=== PATIENT | male | born 1970 | race Caucasian/White ===

== ENCOUNTER → 2016-07-04 | Outpatient (CLI) | payer OTHER ==
--- NOTE | 2016-07-04 17:10 | US ---
EXAMINATION TYPE: US scrotum with doppler. Grayscale and color Doppler Duplex imaging performed of t caridad scrotum. DATE OF EXAM: 07/04/2016 4:24 PM COMPARISON: No previous CLINICAL HISTORY: N50.8 L Testicular Swelling. Occasional left testicular pain EXAM MEASUREMENTS: TESTICLES: Right Testicle: 4.2 x 2.6 x 3.1 cm Left Testicle: 4.1 x 2.4 x 2.8 cm EPIDIDYMIS HEAD: Right Epididymis: 0.8 x 1.3 x 1.5 cm Left Epididymis: 1.0 x 1.2 x 1.5 cm Doppler performed to assess for testicular vascularity; good bilateral color flow and waveforms are s een. . Presence of hydroceles: right 2.7cm, left 3.1cm Presence of varicoceles: no TECHNOLOGIST IMPRESSION: No suspicious focal intratesticular mass is seen bilaterally. There are small scrotal fluid collectio n or hydroceles seen bilaterally. Comparison view show symmetric color flow to both testicles without abnormal skin thickening seen bilaterally. IMPRESSION: Symmetric blood flow to both testicles is noted. Fairly unremarkable study.
== END | disposition home or self-care (01) ==
LOC: RADUSWWP 16:03
PROVIDERS: ATTEND Surgery
DX: N50.89 Other specified disorders of the male genital organs (principal)
CPT/HCPCS: 76870; 93975

== ENCOUNTER 2016-07-22 12:20 | Day surgery (SDC) | payer OTHER ==
[2016-07-20 08:59] VITALS: BMI 23.7
[~2016-07-22 12:20] MED LIST: DEXAMETHASONE SOD PHOSPHATE 10 MG/ML 1 ML VIAL IV ONE; HEPARIN SODIUM,PORCINE 5,000 UNIT/ML 1 ML VIAL SQ ONE; LACTATED RINGERS 1,000 ML IV SCH; MIDAZOLAM 2 MG/2 ML VIAL IV PRN; ONDANSETRON 4 MG/2 ML VIAL IVP ONE; SCOPOLAMINE 1.5MG/72HR PATCH TRANSDERM ONE; ceFAZolin 2 GM in SODIUM CHLORIDE 0.9% 100 ML IVPB ONE
[2016-07-22] MEDS ORDERED: LIDOCAINE 1% 20 ML VIAL (10MG/ML) FOR IV START INTRADERMA ONE ×2 (13:19→13:20)
[2016-07-22] MEDS ORDERED: NEOSTIGMINE 1 MG/ML 10 ML VIAL ONE (15:15)
[2016-07-22] MEDS ORDERED: SUCCINYLCHOLINE CHLORIDE 100 MG/5 ML SYR IV ONE (15:15)
[2016-07-22] MEDS ORDERED: LIDOCAINE 1% INJ 10MG/ML (20 ML MDV) ONE (15:15)
[2016-07-22] MEDS ORDERED: GLYCOPYRROLATE 0.2 MG/ML 2 ML VIAL ONE (15:15)
[2016-07-22] MEDS ORDERED: MIDAZOLAM 2 MG/2 ML VIAL ONE (15:15)
[2016-07-22] MEDS ORDERED: HYDROmorphone (PF) 1 MG/ML ONE (15:15)
[2016-07-22] MEDS ORDERED: fentaNYL (PF) 50 MCG/ML 2 ML AMP ONE (15:15)
[2016-07-22] MEDS ORDERED: ROCURONIUM BROMIDE 10 MG/ML 10 ML VIAL IV ONE (15:15)
[2016-07-22] MEDS ORDERED: PROPOFOL 10 MG/ML 20 ML VIAL IV ONE (15:15)
[2016-07-22] MEDS ORDERED: MEPERIDINE 50 MG/ML SYRINGE ONE (15:15)
[2016-07-22] MEDS ORDERED: BUPIVACAIN-EPI 0.25%-1:200,000 30 ML VIAL SQ ONE (15:46)
[2016-07-22] MEDS ORDERED: LACTATED RINGERS 1,000 ML IV ONE ×2 (16:42→17:53)
[2016-07-22 17:34] VITALS: TEMP 97.3
[2016-07-22 17:40] VITALS: RESP 16
[2016-07-22] MEDS: HYDROmorphone 1 MG/ML 1 ML SYRINGE IVP PRN ×2 (17:41→17:46)
[2016-07-22 18:03] VITALS: PULSE 88
[2016-07-22 18:39] VITALS: BP 131/73
--- NOTE | 2016-07-27 13:36 | P.OP ---
Date of Procedure: 07/22/16 Preoperative Diagnosis: Bilateral inguinal hernias Chronic nicotine dependence-Quit smoking 4 weeks ago Postoperative Diagnosis: Same Procedure(s) Performed: Robotic-assisted laparoscopic bilateral direct inguinal hernia repair with mesh Implants: Parietex progrip x 2 Anesthesia: ADOLPHA Surgeon: Taylor Tai Estimated Blood Loss (ml): 10 Pathology: none sent Disposition: PACU Indications for Procedure: 45 years old male presents with bilateral direct inguinal hernias. Informed consent obtained and patient elected to undergo robotic-assisted laparoscopic bilateral inguinal hernia repair with mesh possible bilateral. Operative Findings: Bilateral direct type inguinal hernias Description of Procedure: The patient was brought to the operating room and placed in supine position. General anesthesia with endotracheal intubation was performed as per anesthesia team. Both arms were tucked against the abdominal wall and a shunt was positioned in lithotomy using yellowfin stirrups. A sharma catheter was inserted under sterile aseptic precautions. Chlorhexidine was used to prep the skin followed by application of sterile drapes and Ioban dressing. A timeout was performed to verify correct patient, correct procedure and correct side. Patient was confirmed to receive perioperative IV antibiotics, subcutaneous heparin 5000 units and bilateral SCDs were placed. A 2 mm skin incision was made in the left subcostal area and Veress needle was inserted to establish pneumoperitoneum to a pressure of 15 mmHg. A 1.5 cm supraumbilical incision was made which was deepened through the subcutaneous tissue . Two additional 8 mm skin incisions were made on either side of the midline approximately 8 cm away. A 5 mm 30 laparoscope was used to enter the peritoneum using direct Optiview technique. A 8 mm robotic trocar was inserted in the supraumbilical area and 8 mm robotic trocars were inserted on either side of the midline. The patient was placed in Trendelenburg position and the robot was brought in between the legs. The robotic arms including the camera arm were docked on the trocars. The robotic prograsp and monopolar scissors were introduced via arm 1 and 2 respectively. Upon inspection of the peritoneal cavity, bilateral direct hernias identified. The wilkes anatomical landmarks including the pubic symphysis, median and medial umbilical ligaments and bilateral epigastric vessels were identified. Attention was focused on the left side first. Using monopolar scissors a peritoneal flap was created extending medially from the median umbilical ligament and laterally to the direct hernia space. Using gentle traction and countertraction the flap was developed posteriorly. Loose fibrofatty tissue was bluntly dissected. Medially the dissection was carried along the Nick's ligament till pubic tubercle was identified. Care was taken to stay away from the urinary bladder. Dissection was carried out to leave the epigastric vessels against the anterior abdominal wall and laterally beyond the hernia defect. The direct hernia sac was completely reduced. The iliofemoral vessels were identified. The peritoneal reflection overlying the spermatic cord was also dissected off. Care was taken not to injure any gonadal vessels or spermatic cord. Enough inferior dissection was carried out 2 cm below the hernia defect. No indirect hernia noted. Attention was then focused on the right side where similar dissection was performed to identify the above-mentioned wilkes anatomical landmarks. Gentle traction and countertraction helped in reduction of the hernia sac. No bleeding was encountered. The iliofemoral vessels, spermatic cord and vas deferens were protected at all times. Laparoscopic parietex progrip mesh was rolled and introduced through the 12 mm camera port. The right mesh was placed in the preperitoneal cavity with green portion overlying the pubic tubercle . The mesh was rolled upwards so that the mesh covered the direct , indirect inguinal hernia and the femoral hernia space without any kinks or folds. Similarly left parietex progrip mesh was rolled and introduced through the 12 mm camera port and secured over the right direct, indirect and femoral hernia space. The peritoneal flap was then sutured to the cut edge of the peritoneum using continuous 2-0 V lock sutures. The hernia sacs were completely reduced and the mesh lay flat without any kinks or folds. The 12 mm trocar site was closed using [place] device. All sutures were removed. The sponge, instrument and needle count were correct 2. The skin incisions were closed with 4-0 Monocryl and Dermabond skin glue applied. Patient tolerated the procedure well and was taken to postanesthesia care unit in stable condition. The Sharma catheter was removed at the end of the surgery. Bilateral testicles were palpated.
== END 2016-07-22 18:42 | disposition home or self-care (01) ==
LOC: OR 12:20
PROVIDERS: ATTEND Surgery
DX: K40.20 Bilateral inguinal hernia, without obstruction or gangrene, not specified as recurrent (principal); Z87.891 Personal history of nicotine dependence; Z79.891 Long term (current) use of opiate analgesic
CPT/HCPCS: 49650; S2900